=== PATIENT | male | born 1950 | race Caucasian/White ===

== ENCOUNTER 2016-05-22 21:06 | Emergency (ER) | payer MEDICAID ==
[~2016-05-22] VITALS: Ht 170.2 cm; Wt 117.9 kg
[2016-05-22 21:10] VITALS: BP 133/80; PULSE 95; RESP 20; TEMP 98; O2SAT 100
--- NOTE | 2016-05-22 21:30 | NUR ---
Patient to ER bed 05 to gown for evaluation. Side rails up. Report given to ROQUE Logan.
--- NOTE | 2016-05-22 21:30 | NUR ---
Gil cadena in ED - 05/23/16 at 0532 by MARCO A Patient was cutting his nail and cut a piece of his left toe pinky off. Bleed is in control.
--- NOTE | 2016-05-22 21:30 | NUR ---
Patient was cutting his nail and cut a piece of his RIGHT toe pinky off. Bleed is in control.
--- NOTE | 2016-05-22 22:00 | NUR ---
ER at bedside examining patient.
[2016-05-22 23:45] VITALS: BP 128/78; PULSE 88; RESP 18; TEMP 98; O2SAT 100
--- NOTE | 2016-05-22 23:45 | NUR ---
Patient given written and verbal discharge instructions and verbalizes understanding. ER MD discussed with patient the results and treatment provided. Patient in stable condition. ID arm band removed. Patient educated on pain management and to follow up with PMD. Pain Scale 0/10. Opportunity for questions provided and answered.
== END 2016-05-22 23:45 | disposition home or self-care (01) ==
LOC: SED 21:06
DX: S91.114A Laceration without foreign body of right lesser toe(s) without damage to nail, initial encounter (principal); I10 Essential (primary) hypertension; W45.8XXA Other foreign body or object entering through skin, initial encounter; Y93.89 Activity, other specified; Y92.89 Other specified places as the place of occurrence of the external cause; Y99.8 Other external cause status
CPT/HCPCS: 99283

== ENCOUNTER 2016-09-04 06:42 | Emergency (ER) | payer OTHER, MEDICAID ==
[~2016-09-04] VITALS: Ht 170.2 cm; Wt 114.8 kg
[2016-09-04 07:04] VITALS: BP_SYST 142
--- NOTE | 2016-09-04 07:08 | NUR ---
Patient to ER bed 3 to gown for evaluation. Side rails up. Report given to Niecy NEVAREZ.
--- NOTE | 2016-09-04 07:13 | NUR ---
C/O left 3rd finger redness, swelling and pain after ripping off hangnail on 08/31. No drainage per patient. Patient denies fever.
--- NOTE | 2016-09-04 07:55 | NUR ---
I&D Procedure done by Dr Grant to left 3rd finger using sterile technique. Lidocaine 1% used. 2 x 2 gauze applied to distal finger with tape, no bleeding noted. Wound care discussed w/ patient. Pt tolerated procedure well.
[2016-09-04] MEDS ORDERED: LIDOCAINE 1% 10 MG/ML, 20 ML MDV INJ ONE (08:00)
--- NOTE | 2016-09-04 08:19 | NUR ---
Patient given written and verbal discharge instructions and verbalizes understanding. ER MD discussed with patient the results and treatment provided. Patient in stable condition. ID arm band removed. Rx of Augmentin given. Patient educated on pain management and to follow up with PMD. Pain Scale 2/10. Opportunity for questions provided and answered.
[2016-09-04 08:21] VITALS: BP_SYST 140
== END 2016-09-04 08:21 | disposition home or self-care (01) ==
LOC: SED 06:42
DX: L03.012 Cellulitis of left finger (principal); I10 Essential (primary) hypertension
CPT/HCPCS: 26010; 99283; J2001

== ENCOUNTER 2017-07-16 06:52 | Emergency (ER) | payer OTHER, MEDICAID ==
[~2017-07-16] VITALS: Ht 170.2 cm; Wt 113.4 kg
[2017-07-16 06:55] VITALS: BP_SYST 143
[2017-07-16 07:12] VITALS: BP_SYST 143
[2017-07-19] MEDS ORDERED: SULF1TAB48 PO (17:11)
[2017-07-19] MEDS ORDERED: BENA20TA2 PO (17:11)
[2017-07-19] MEDS ORDERED: CEPH-568 PO (17:11)
== END 2017-07-16 07:12 | disposition home or self-care (01) ==
LOC: SED 06:52
DX: L02.01 Cutaneous abscess of face (principal); L02.214 Cutaneous abscess of groin; I10 Essential (primary) hypertension
CPT/HCPCS: 99283

== ENCOUNTER 2019-05-09 09:52 | Outpatient (CLI) | payer OTHER, MEDICAID ==
[~2019-05-09 09:52] MED LIST: BENA20TA9 PO; SULF1TAB48 PO
[2019-05-09 10:30] LABS: BASOPHILS # (AUTO) 0.1 K/uL (0.0-0.2); BASOPHILS % (AUTO) 1.1 % (0.0-2.0); EOSINOPHILS # (AUTO) 0.4 K/uL (0.0-0.4); HEMATOCRIT 44.4 % (36-54); HEMOGLOBIN 14.8 g/dL (14.0-18.0); LYMPHOCYTES # (AUTO) 2.6 K/uL (1.0-5.5); LYMPHOCYTES % (AUTO) 28.6 % (20.5-51.5); MEAN CORPUSCULAR HEMOGLOBIN 30 pg (27-31); MEAN CORPUSCULAR HGB CONC 33 % (32-36); MEAN CORPUSCULAR VOLUME 89 fL (79.0-98.0); MONOCYTES # (AUTO) 0.6 K/uL (0.0-1.0); MONOCYTES % (AUTO) 7.1 % (1.7-9.3); NEUTROPHILS # (AUTO) 5.4 K/uL (1.8-7.7); NEUTROPHILS % (AUTO) 59.2 % (40.0-70.0); PLATELET COUNT (AUTO) 292 K/uL (130-430); RED BLOOD CELL COUNT(AUTO) 5.02 MIL/uL (4.2-6.2); RED CELL DISTRIBUTION WIDTH 14.1 % (9.0-15.0); WHITE BLOOD COUNT (AUTO) 9.1 K/uL (4.8-10.8)
[2019-05-09 10:41] LABS: CALCIUM 9.6 mg/dL (8.4-11.0); CREATININE 1.05 mg/dL (0.55-1.30); POTASSIUM 4.1 mmol/L (3.5-5.1); TOTAL BILIRUBIN 0.5 mg/dL (0.0-1.0)
[2019-05-09 14:47] LABS: C-REACTIVE PROTEIN QUANT 1.4 mg/dL (0-0.5)
== END 2019-05-09 21:12 | disposition home or self-care (01) ==
LOC: SLB 09:52
PROVIDERS: ATTEND Family Medicine
DX: I82.432 Acute embolism and thrombosis of left popliteal vein (principal)
CPT/HCPCS: 36415; 80053; 85025; 86140

== ENCOUNTER 2022-01-10 08:22 | Outpatient (CLI) | payer OTHER, MEDICAID ==
[~2022-01-10 08:22] MED LIST changes: +BENA-6 PO; -BENA20TA9 PO
[2022-01-10 10:01] LABS: BASOPHILS # (AUTO) 0.1 K/uL (0.0-0.2); BASOPHILS % (AUTO) 0.7 % (0.0-2.0); EOSINOPHILS # (AUTO) 0.4 K/uL (0.0-0.4); EOSINOPHILS % (AUTO) 4.5 % (0.0-4.0); HEMATOCRIT 43.4 % (36-54); HEMOGLOBIN 14.6 g/dL (14.0-18.0); LYMPHOCYTES # (AUTO) 2.3 K/uL (1.0-5.5); LYMPHOCYTES % (AUTO) 27.6 % (20.5-51.5); MEAN CORPUSCULAR HEMOGLOBIN 30 pg (27-31); MEAN CORPUSCULAR HGB CONC 34 % (32-36); MEAN CORPUSCULAR VOLUME 88 fL (79.0-98.0); MONOCYTES # (AUTO) 0.6 K/uL (0.0-1.0); MONOCYTES % (AUTO) 6.9 % (1.7-9.3); NEUTROPHILS % (AUTO) 60.3 % (40.0-70.0); PLATELET COUNT (AUTO) 257 K/uL (130-430); RED BLOOD CELL COUNT(AUTO) 4.93 MIL/uL (4.2-6.2); RED CELL DISTRIBUTION WIDTH 14.2 % (9.0-15.0); WHITE BLOOD COUNT (AUTO) 8.3 K/uL (4.8-10.8)
[2022-01-10 10:08] LABS: ALANINE AMINOTRANSFERASE 42 U/L (12-78); ALBUMIN 3.9 g/dL (3.4-4.8); ANION GAP 6 (5-15); ASPARTATE AMINOTRANSFERASE 21 U/L (10-37); CALCIUM 9.4 mg/dL (8.4-11.0); CHLORIDE 101 mmol/L (98-107); CREATININE 1.29 mg/dL (0.55-1.30); GLUCOSE 104 mg/dL (70-99); POTASSIUM 4.8 mmol/L (3.5-5.1); TOTAL BILIRUBIN 0.6 mg/dL (0.0-1.0); UREA NITROGEN, BLOOD 14 mg/dL (8-21)
[2022-01-10 10:18] LABS: C-REACTIVE PROTEIN QUANT 0.2 mg/dL (0-0.5)
== END 2022-01-10 19:04 | disposition home or self-care (01) ==
LOC: SLB 08:22
DX: I12.0 Hypertensive chronic kidney disease with stage 5 chronic kidney disease or end stage renal disease (principal); N18.6 End stage renal disease; D63.1 Anemia in chronic kidney disease; E03.9 Hypothyroidism, unspecified; E78.2 Mixed hyperlipidemia; I25.810 Atherosclerosis of coronary artery bypass graft(s) without angina pectoris; L40.9 Psoriasis, unspecified; I82.432 Acute embolism and thrombosis of left popliteal vein; Z86.39 Personal history of other endocrine, nutritional and metabolic disease
CPT/HCPCS: 36415; 80053; 85025; 85379; 86140

== ENCOUNTER 2022-07-20 08:05 | Outpatient (CLI) | payer OTHER, MEDICAID ==
[2022-07-20 08:44] LABS: BASOPHILS # (AUTO) 0.1 K/uL (0.0-0.2); BASOPHILS % (AUTO) 1.2 % (0.0-2.0); EOSINOPHILS # (AUTO) 0.6 K/uL (0.0-0.4); EOSINOPHILS % (AUTO) 6.5 % (0.0-4.0); HEMATOCRIT 43.7 % (36-54); HEMOGLOBIN 14.1 g/dL (14.0-18.0); LYMPHOCYTES # (AUTO) 2.6 K/uL (1.0-5.5); LYMPHOCYTES % (AUTO) 30.7 % (20.5-51.5); MEAN CORPUSCULAR HEMOGLOBIN 29 pg (27-31); MEAN CORPUSCULAR HGB CONC 32 % (32-36); MEAN CORPUSCULAR VOLUME 91 fL (79.0-98.0); MONOCYTES # (AUTO) 0.6 K/uL (0.0-1.0); MONOCYTES % (AUTO) 6.9 % (1.7-9.3); NEUTROPHILS # (AUTO) 4.7 K/uL (1.8-7.7); NEUTROPHILS % (AUTO) 54.7 % (40.0-70.0); PLATELET COUNT (AUTO) 274 K/uL (130-430); RED BLOOD CELL COUNT(AUTO) 4.81 MIL/uL (4.2-6.2); RED CELL DISTRIBUTION WIDTH 13.5 % (9.0-15.0); WHITE BLOOD COUNT (AUTO) 8.5 K/uL (4.8-10.8)
[2022-07-20 09:35] LABS: ALANINE AMINOTRANSFERASE 27 U/L (12-78); ALBUMIN 3.8 g/dL (3.4-4.8); ANION GAP 7 (5-15); ASPARTATE AMINOTRANSFERASE 19 U/L (10-37); CHLORIDE 99 mmol/L (98-107); CREATININE 1.05 mg/dL (0.55-1.30); GLUCOSE 106 mg/dL (70-99); TOTAL BILIRUBIN 0.7 mg/dL (0.0-1.0); UREA NITROGEN, BLOOD 15 mg/dL (8-21)
== END 2022-07-20 19:44 | disposition home or self-care (01) ==
LOC: SLB 08:05
PROVIDERS: ATTEND Internal Medicine Hematology & Oncology
DX: I82.432 Acute embolism and thrombosis of left popliteal vein (principal)
CPT/HCPCS: 36415; 80053; 85025; 85379

== ENCOUNTER 2022-08-24 09:27 | Outpatient (CLI) | payer OTHER, MEDICAID ==
[2022-08-24 10:13] LABS: BASOPHILS # (AUTO) 0.1 K/uL (0.0-0.2); BASOPHILS % (AUTO) 1.4 % (0.0-2.0); EOSINOPHILS # (AUTO) 0.5 K/uL (0.0-0.4); EOSINOPHILS % (AUTO) 6.5 % (0.0-4.0); HEMATOCRIT 42.5 % (36-54); LYMPHOCYTES # (AUTO) 2.2 K/uL (1.0-5.5); LYMPHOCYTES % (AUTO) 27.1 % (20.5-51.5); MEAN CORPUSCULAR HEMOGLOBIN 30 pg (27-31); MEAN CORPUSCULAR HGB CONC 33 % (32-36); MEAN CORPUSCULAR VOLUME 90 fL (79.0-98.0); MONOCYTES # (AUTO) 0.6 K/uL (0.0-1.0); MONOCYTES % (AUTO) 7.1 % (1.7-9.3); NEUTROPHILS # (AUTO) 4.6 K/uL (1.8-7.7); NEUTROPHILS % (AUTO) 57.9 % (40.0-70.0); PLATELET COUNT (AUTO) 259 K/uL (130-430); RED CELL DISTRIBUTION WIDTH 13.7 % (9.0-15.0)
[2022-08-24 10:41] LABS: ANION GAP 6 (5-15); CALCIUM 9.3 mg/dL (8.4-11.0); CHLORIDE 103 mmol/L (98-107); CHOLESTEROL 191 mg/dL (<200); GLUCOSE 108 mg/dL (70-99); HDL CHOLESTEROL 40 mg/dL (>45); THYROID STIMULATING HORMONE 1.05 uIu/mL (0.34-4.82); TRIGLYCERIDES 171 mg/dL (30-150); UREA NITROGEN, BLOOD 12 mg/dL (8-21); URIC ACID 5.2 mg/dL (2.4-7.0)
[2022-08-25 07:07] LABS: CALCIUM 9.6 mg/dL (8.6-10.2)
[2022-08-25 08:06] LABS: PROSTATE SPECIFIC AG 0.8 ng/mL (0.0-4.0)
== END 2022-08-24 19:10 | disposition home or self-care (01) ==
LOC: SLB 09:27
PROVIDERS: ATTEND Family Medicine
DX: Z13.21 Encounter for screening for nutritional disorder (principal); Z13.29 Encounter for screening for other suspected endocrine disorder; Z13.0 Encounter for screening for diseases of the blood and blood-forming organs and certain disorders involving the immune mechanism; Z13.1 Encounter for screening for diabetes mellitus; I10 Essential (primary) hypertension; E78.5 Hyperlipidemia, unspecified; I95.9 Hypotension, unspecified; N40.0 Benign prostatic hyperplasia without lower urinary tract symptoms; E55.9 Vitamin D deficiency, unspecified; D64.9 Anemia, unspecified
CPT/HCPCS: 36415; 80048; 80061; 82306; 82310; 83037; 83540; 83970; 84153; 84443; 84550; 85025